=== PATIENT | female | born 1965 | race Caucasian/White ===

== ENCOUNTER 2024-03-18 13:47 | Day surgery (SDC) | payer OTHER, SELFPAY ==
[2024-03-18] VITALS (9 sets, daily range): BP systolic 110–163; BP diastolic 67–94; BMI 21.8
--- NOTE | 2024-03-18 11:47 | W.CON.GYNONC ---
Chief Complaint
-
abnormal pap, HR HPV positive
History of Present Illness
History�of�Present�Illness
58�year�old�woman�G1,�P1�menopausal,�seen�by�me�in�2021�returns�back�for�abnormal�Pap�smear. Her�past�history�significant�for�endometrial�ablation�in�her�late�30s,�cone�biopsy�at�[facility],�followed�over�10�years�with
annual�Pap�smears,,�has�had�couple�of�episodes�of�spotting�or�discharge�per�vagina.�Colposcopy�was�difficult�because�of�stenosis
of�cervix�and�inability�to�see�and�access�to�uterine�cavity.�She�has�previously�reported�that�her�spotting�happens�when�she�is�lifting heavy�objects.
Past�medical�history�is�otherwise�significant�for�right�salpingo�oophorectomy�appendectomy�and�colonoscopy�and�sling�procedure. Patient�was�seen�recently�by�Dr.�Ravy�Karen.�Pap�shows�ASCUS,�HR�HPV�positive,�HPV�16�and�18�negtive
In�2021�the�patient�did�have�an�MRI�of�the�pelvis�indicating�uterus�to�be�4.1�x�4.3�x�1.9�cm�no�focal�abnormalities.�Cervix�was
unremarkable.�Endometrium�was�normal�in�thickness.�Right�ovary�was�absent,�left�ovary�measured�1.9�cm�containing�a�6�mm�cyst.
Of�note�the�patient�partner�had�been�tested�positive�for�syphilis.�Patient�was�treated�successfully�for�syphilis�and�eventually�tested negative. Previous�Treatment�Events No�previous�treatment�history�has�been�entered�for�this�patient.
Current�Treatment Regimens:�There�are�no�active�flowsheets�for�this�patient.
Allergies No�Known�Drug�Allergies
Medications
omeprazole�20�mg�tablet,delayed�release 01/09/2024 0 1�p.o.�q.�day
Past�Medical�History
Health�Maintenance�and�Significant�Events No�on�going�treatment�events�have�been�entered�for�this�patient.
Social�History Patient�denies�ever�using�tobacco. Current�alcohol�user.�Patient�reports�an�average�of�1�drinks�per�week. Occupational�Status:�Current:�[employer]�. Patient�has�not�had�any�occupational�exposure.
Medical History
Allergies
Allergies reflect when allergies were last updated in [employer].
No Known Allergies Allergy (Unverified 03/18/24 07:44)
Review of Systems
-
A 12 point Review of Systems was completed except as noted: Yes
Physical Exam
Physical Exam
Physical�Exam Pelvic�Examination: External�normal�labia,�urethra,�anus.� Vagina:�Normal�mucosa.�excess�relaxation�of�tissues�noted Cervix:�normal�appearance,�,�scarred,�os�stenotic,�no�gross�lesion�seen�no�discharge.�
Uterus:�normal�size.�small,�normal�parametria Adnexa:�No�pelvic�mass. RVE:�no�masses�or�nodularity
General:�Well�developed,�well�nourished�patient.�In�no�acute�distress.
Neck:�No�thyromegaly.�No�cervical�lymphadenopathy.
Lungs:�Clear�to�auscultation.�Good�air�movement�bilaterally.
Cardiac:�Regular�rate.�Regular�rhythm.�No�murmurs�appreciated.
Right�Breast:�No�masses�or�dimpling.�No�nipple�discharge. Left�Breast:�No�masses�or�dimpling.�No�nipple�discharge.
Abdomen:�Abdomen�is�soft.�Non�tender�to�palpation.�Non�distended.
Extremities:�No�edema. Hematologic/Lymphatic:�No�palpable�lymphadenopathy.
Musculoskeletal:�Normal�range�of�motion.�Strength�and�Tone�are�normal.
Skin:Non�jaundiced.�No�petechia.�No�purpura.
Neurologic:�Speech�is�fluent.�Normal�gait�and�station.�Cranial�nerves�intact.
Impression / Plan
-
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
has�not�been�any�obvious�evidence�of�cervical�cancer.�In�addition�her�evaluation�is�difficult�because�of�prior�procedures�on�the�cervix that�has�caused�scarring�and�stenosis�of�the�cervical�os.�
I�am�recommending�a�formal�exam�under�anesthesia,�loop�excisional procedure�of�the�cervix�as�well�as�multiple�biopsies�of�the�upper�vagina�including�fornices.�We�need�to�establish�whether�she�has
mild�or�higher�grade�abnormality�involving�genital�tract.�
I�am�inclined�to�likely�recommend�a�definitive�total�hysterectomy�eventually for�this�patient.�She�understands�that�she�remains�at�high�risk�of�development�of�cervical,�vaginal,�vulvar�cancer�but�additional�risk
including�anal,�oropharyngeal�cancers�remain�possible.
[2024-03-18] MEDS: NEURONTIN 300 MG PO (13:49)
[2024-03-18] MEDS: CELEBREX 200 MG PO (13:49)
[2024-03-18] MEDS: TYLENOL 1000 MG PO (13:49)
[2024-03-18] MEDS: HEPARIN 5000 UNITS SC (13:59)
--- NOTE | 2024-03-18 17:04 | OR.RPT ---
Operative Report
Operative Report
Date of procedure: March 18, 2024
Preoperative diagnosis: Cervical stenosis, abnormal Pap smear, high risk HPV positive
Postop diagnosis same
Procedure: Colposcopy with LEEP procedure, multiple vaginal biopsies
Surgeon: Dennis Herrera MD
Cartography/Mapping Technician: Guerda Charles PA-C
Anesthesia General LMA intubation
Estimated blood loss: 5 cc
Complication: None
Procedure in detail this patient was brought to the operating room and placed in supine position, general anesthesia was administered and LMA intubation was performed, she was placed in lithotomy position using yellowfin stirrups and prepped on the
lower abdomen perineum and vagina and upper thighs she was draped. Timeout procedure was completed, she received 2 g of Ancef. We used Flower retractors to retract anterior and posterior wall of the vagina. Cervix appears to be scarred and flush
with upper vagina. There is a dimpling in the center suggestive of scarred os. A cruciate incision was made here with #11 blade and we explored the os with a small dilator and was able to get into the cervical canal. Anterior lip of the cervix
was grasped with single-tooth tenaculum. Paracervical block was performed with 10 cc 1% lidocaine injected equally at 5 and 7:00 paracervical location. LEEP procedure with 10 mm loop was performed after application of Lugol's solution removing the
tissue around the cervical os. The transformation zone is examined and cannot be really well identified. Several areas suggestive of low-grade dysplasia is present in the upper vaginal fornices and hands vaginal biopsies were performed at anterior
and posterior fornix right and left fornix. We used the rollerball cautery to cauterize the bed of the conization and applied Monsel solution to the bed of conization. Good hemostasis was present all instruments were removed, we placed her leg
back in supine position extubated the patient and returned back to recovery room stable condition. Counts of laps instruments and needle was correct x 2. I was present and scrubbed for entire procedure as dictated above.
Disposition to PACU stable awake extubated
== END 2024-03-18 17:37 | disposition home or self-care (01) ==
LOC: SDS 13:47
PROVIDERS: ATTENDING PHYSICIAN Obstetrics & Gynecology Gynecologic Oncology
DX: N72 Inflammatory disease of cervix uteri (principal); N88.2 Stricture and stenosis of cervix uteri; R87.810 Cervical high risk human papillomavirus (HPV) DNA test positive; R87.610 Atypical squamous cells of undetermined significance on cytologic smear of cervix (ASC-US); N92.4 Excessive bleeding in the premenopausal period
CPT/HCPCS: 57461; 88305; 88307

== ENCOUNTER 2024-10-28 05:45 | Day surgery (SDC) | payer OTHER, SELFPAY ==
[2024-10-11 10:26] LABS: Hematocrit 38.4 % (37.0-47.0); Hemoglobin 12.7 g/dL (12.0-16.0); Mean Corp Hgb Conc. 33.1 g/dL (33.0-37.0); Mean Corpuscular Volume 86.9 fL (81.0-99.0); Nucleated Red Blood Cells % 0 %; Platelet Count 264 10^3/uL (130-400); Red Cell Dist. Width 12.5 % (11.5-14.5)
[2024-10-11 10:54] LABS: Blood Urea Nitrogen 23 mg/dl (7-17); Calcium 9.9 mg/dl (8.4-10.2); Carbon Dioxide 30 mmol/L (22-30); Chloride 110 mmol/L (98-107); Glucose 96 mg/dl (70-99); Potassium 4.5 mmol/L (3.5-5.1); Sodium 144 mmol/L (135-145); eGFR > 60.00
--- NOTE | 2024-10-26 21:31 | W.CON.GYNONC ---
Addendum entered and electronically signed by Dennis Herrera MD 10/28/24 09:02:
This document serves as preoperative history and physical for surgery scheduled October 28, 2024
Original Note:
Consultation
-
Date/Time Consultation Performed: 10/26/2024
Performing Provider: Dennis Herrera
Reason for Consultation: Pre Op H&P
Chief Complaint
-
Abnormal Pap smears, High risk HPV, Prolapse
History of Present Illness
58�year�old woman G1, P1 menopausal, seen by me in 2020 returns back for abnormal Pap smear.
Her past history significant for endometrial ablation in her late 30s, cone biopsy at [facility], followed over 10 years with
annual Pap smears,, has had couple of episodes of spotting or discharge per vagina. Colposcopy was difficult because of stenosis
of cervix and inability to see and access to uterine cavity. She has previously reported that her spotting happens when she is lifting
heavy objects.
Past medical history is otherwise significant for right salpingo�oophorectomy appendectomy and colonoscopy and sling procedure.
Patient was seen recently by Dr. Dereck Jones. Pap shows ASCUS, HR HPV positive, HPV 16 and 18 negtive
In 2020 the patient did have an MRI of the pelvis indicating uterus to be 4.1 x 4.3 x 1.9 cm no focal abnormalities. Cervix was
unremarkable. Endometrium was normal in thickness. Right ovary was absent, left ovary measured 1.9 cm containing a 6 mm cyst.
Of note the patient partner had been tested positive for syphilis. Patient was treated successfully for syphilis and eventually tested
negative.
This�patient�was�taken�to�the�operating�room�for�exam�under�anesthesia�LEEP�as�well�as�multiple�vaginal�biopsies.�LEEP�cone
biopsy�specimen�reveals�presence�of�squamous�atypia�only,�the�left�vaginal�fornix�also�has�evidence�of�squamous�atypia.�There�is no�evidence�of�high�grade�dysplasia,�there�is�no�evidence�of�invasive�cancer.�[facility]
She�reports�that�she�also�has�some�symptoms�of�worsening�cystocele�and�uterine�prolapse.�At�times�she�does�have�some�ongoing urge�incontinence �������������������������������������������� 07/16/24 She�
has�seen�Dr�Jb�Sariano�and�had�her�work�up�and�is�ready�to�proceed�with�definitive�surgery�and would�like�combination�surgery�with�urology�to�fix�her�cystocele,�he�is�also�planning�a�robotic�approach�since�she�already�has�a sling.�
Medical History
Allergies
Allergies reflect when allergies were last updated in [employer].
No Known Allergies Allergy (Verified 10/21/24 15:47)
Physical Exam
Physical Exam
Pelvic Examination:
External normal labia, urethra, anus.
Vagina: Normal mucosa. excess relaxation of tissues noted,
Cervix: well healed from bx
Uterus: normal size. small, normal parametria
Adnexa: No pelvic mass.
RVE: no masses or nodularity
General: Well developed, well nourished patient. In no acute distress.
Neck: No thyromegaly. No cervical lymphadenopathy.
Lungs: Clear to auscultation. Good air movement bilaterally.
Cardiac: Regular rate. Regular rhythm. No murmurs appreciated.
Right Breast: No masses or dimpling. No nipple discharge.
Left Breast: No masses or dimpling. No nipple discharge.
Abdomen: Abdomen is soft. Non�tender to palpation. Non�distended.
Extremities: No edema.
Hematologic/Lymphatic: No palpable lymphadenopathy.
Musculoskeletal: Normal range of motion. Strength and Tone are normal.
Skin:Non�jaundiced. No petechia. No purpura.
Neurologic: Speech is fluent. Normal gait and station. Cranial nerves intact.
Results
-
10/11/24 09:59
10/11/24 09:59
Impression / Plan
-
I have reviewed my recommendation for her to undergo�robotic�assisted�laparoscopic�TLH�with�BSO�and�reviewed�risks. 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
prolapse�repair,�uterosacral�ligament�suspension�with�anterior�and�posterior�colporrhaphy�is�proposed. She�also�has�stress�incontinence,�urodynamic�testing�did�not�reveal�any�occult�stress�incontinence�he�did�not�recommend�any
concomitant�mid�urethral�sling.�The�possibility�of�urethral�bulking�was�discussed�with�the�patient�in�the�postoperative�setting.�She�is continuing�with�vaginal�estradiol Surgery�is�scheduled�for�[facility]�
Surgery�risk�and�benefits�and�alternatives�were�discussed�with�the�patient,�recovery�process�were�reviewed,�given�the�fact�that�she
works�in�a�factory�with�lifting�heavy�objects�I�do�recommend�and�support�6�weeks�off�work�to�prevent�complications�following surgery. Informed�consent�was�signed�in�the�office�today I�plan�to�see�her�back�in�the�office�2�to�3�weeks�later�postop
[2024-10-28] VITALS (9 sets, daily range): BP systolic 106–151; BP diastolic 63–82; BMI 23.2
[2024-10-28] MEDS: TYLENOL 1000 MG PO (06:30)
[2024-10-28] MEDS: NORMOSOL-R/PLASMALYTE-A 1000 IV (06:31)
[2024-10-28] MEDS: CELEBREX 200 MG PO (06:31)
[2024-10-28] MEDS: NEURONTIN 300 MG PO (06:31)
[2024-10-28] MEDS: HEPARIN 5000 UNITS SC (06:31)
--- NOTE | 2024-10-28 09:03 | W.IMMPOSTOP ---
Surgical Immed Post Op Note
-
Primary Surgeon: Dennis Herrera MD
Assisting Surgeon: Guerda Charles PA-C
Pre-op Diagnosis: Recurrent abnormal Pap smear, high risk HPV positive, postmenopausal spotting, prior right salpingo-oophorectomy
Post-op Diagnosis: Same pending final pathology
Procedure Performed: Robotic assisted total laparoscopic hysterectomy, left salpingo-oophorectomy, excision of right ovarian vessels
Anesthesia Type: General Endotracheal intubation
Specimen / Cultures: Uterus and cervix, left tube and ovary, right ovarian vessels
Estimated Blood Loss: 25 cc
Complications: None
Operative Findings: Exam under anesthesia reveals agglutinated and scarred cervical os with granulation tissue, cervix is flush with upper vagina, there is significant cystocele. Intra-abdominally there is scarring involving vesicouterine space,
absent right tube and ovary, normal-appearing left tube and ovary. Portions of the large and small bowel that were visualized without any abnormalities
--- NOTE | 2024-10-28 09:06 | OR.RPT ---
Operative Report
Operative Report
Date of procedure: October 28, 2024
primary Surgeon: Dennis Herrera MD
Assisting Surgeon: Guerda Charles PA-C
Pre-op Diagnosis: Recurrent abnormal Pap smear, high risk HPV positive, postmenopausal spotting, prior right salpingo-oophorectomy
Post-op Diagnosis: Same pending final pathology
Procedure Performed: Robotic assisted total laparoscopic hysterectomy, left salpingo-oophorectomy, excision of right ovarian vessels
Anesthesia Type: General Endotracheal intubation
Specimen / Cultures: Uterus and cervix, left tube and ovary, right ovarian vessels
Estimated Blood Loss: 25 cc
Complications: None
Operative Findings: Exam under anesthesia reveals agglutinated and scarred cervical os with granulation tissue, cervix is flush with upper vagina, there is significant cystocele. Intra-abdominally there is scarring involving vesicouterine space,
absent right tube and ovary, normal-appearing left tube and ovary. Portions of the large and small bowel that were visualized without any abnormalities
Procedure in detail: This patient was taken to the operating room and placed in supine position, general anesthesia was administered and she was intubated without any difficulty, appropriate IV lines were placed her arms were wrapped in foam and
placed along the patient's side, she was placed in lithotomy position using yellowfin stirrups. She was prepped in the abdomen perineum and vagina and draped. Timeout procedure was carried out she received appropriate IV antibiotics, Fontanez
catheter was inserted into the bladder under sterile conditions for drainage of the bladder. I used a speculum to visualize the cervix and I had difficulty identifying the cervical os. I was able to pass a dilator into what I thought was the
cervical canal but could only advanced it to about 3 to 4 cm. A uterine manipulator parachute mender type with 3.5 cm JUANJOSE ring was placed around the cervix. Vaginal cuff occluder was insufflated and attention was turned abdominally. Veress needle was
inserted just below left subcostal margin and pneumoperitoneum was created with CO2. 8 mm Xi robotic port was inserted in the left upper quadrant and we were able to visualize the entire peritoneal cavity. 8 mm midline epigastric port was placed
25 cm cephalad to the symphysis pubis right and left lateral ports as well as right upper quadrant port was placed. Survey of the upper abdomen reveals liver spleen stomach diaphragms to be within normal limits. Patient was placed in 28 degree
Trendelenburg and robotic system was docked. Air seal was used for insufflation. Right and left round ligaments were sealed and divided anterior and posterior leaves of the broad ligament were dissected open both IP ligaments were identified,
ureter was identified in the retroperitoneum vermiculate eating. An avascular window was created between IP ligaments and ureters and these were sealed 3 times and divided. The remainder of the right ovarian vessels as well as left tube and ovary
was left attached to the uterus. Bladder flap was sharply developed and advanced below the cervicovaginal junction. Uterine arteries were sealed on right and left sides and transected uterosacral ligaments were sealed and transected.
Circumferential incision was made over the JUANJOSE ring until the uterus was completely free and this was removed through the vagina.
This patient was scheduled to undergo uterosacral ligament plication and cystocele repair by Dr. Manning, he presented to the operating room and actually performed closure of the vaginal cuff prior to starting uterosacral ligament suspension. The
remainder of the dictation will be separately made by him. Counts of laps instruments and needle was correct x 2 I was present and scrubbed for entire procedure until closure of the cuff.
[2024-10-28] MEDS: ZOFRAN 4 MG IV (11:17)
== END 2024-10-28 13:45 | disposition home or self-care (01) ==
LOC: SDS 05:45
PROVIDERS: ATTENDING PHYSICIAN Obstetrics & Gynecology Gynecologic Oncology; FAMILY PHYSICIAN Family Medicine; OTHER PHYSICIAN Obstetrics & Gynecology
DX: N80.03 Adenomyosis of the uterus (principal); N83.8 Other noninflammatory disorders of ovary, fallopian tube and broad ligament; N83.202 Unspecified ovarian cyst, left side; R87.810 Cervical high risk human papillomavirus (HPV) DNA test positive; N39.46 Mixed incontinence; N81.2 Incomplete uterovaginal prolapse; N95.0 Postmenopausal bleeding
CPT/HCPCS: 58571; 36415; 80048; 85025; 86850; 86900; 86901; 88307; 93005; C1713